=== PATIENT | female | born 1980 | race Caucasian/White ===

== ENCOUNTER 2019-06-23 13:03 | Emergency (ER) | payer OTHER ==
[~2019-06-23] VITALS: Ht 162.6 cm; Wt 52.2 kg
[2019-06-23 13:03] VITALS: BP 101/68
[2019-06-23 13:46] LABS: INFLUENZA A PATIENT NEGATIVE (NEGATIVE); INFLUENZA B PATIENT NEGATIVE (NEGATIVE)
[2019-06-23] MEDS ORDERED: AMOX500C PO (13:56)
--- NOTE | 2019-06-23 13:56 | PHYS DOC ---
Past History Past Medical History: No Pertinent History Past Surgical History: No Surgical History Alcohol Use: Occasionally Drug Use: None Adult General Chief Complaint Chief Complaint: FLU SYMPTOM HPI HPI Patient is a 39-year-old female who presents with four-day history of cough and congestion as well as sore throat. Patient also complains of pain in her right ear. She denies any chest pain or shortness of breath. Patient states that she feels like she is been running a fever at home. She is had no vomiting or diarrhea.[] Review of Systems Review of Systems Constitutional: Positive subjective fever and chills [] HENT: Positive sore throat [] Respiratory: Positive cough without shortness of breath [] Cardiovascular: No additional information not addressed in HPI [] Integument: Denies rash or skin lesions [] Neurologic: Denies headache, focal weakness or sensory changes [] Allergies Allergies Allergies Coded Allergies Type Severity Reaction Last Updated Verified No Known Drug Allergies 06/23/19 No Physical Exam Physical Exam Constitutional: Well developed, well nourished, no acute distress, non-toxic appearance. [] HENT: Normocephalic, atraumatic, bilateral external ears normal, there is pharyngeal erythema without exudates. [] Neck: Normal range of motion, no tenderness, supple, with anterior cervical lymphadenopathy. [] Cardiovascular: Regular rate and rhythm[] Lungs & Thorax: Bilateral breath sounds clear to auscultation [] Skin: Warm, dry, no erythema, no rash. [] Current Patient Data Vital Signs Vital Signs Date Time Temp Pulse Resp B/P (MAP) Pulse Ox O2 Delivery O2 Flow Rate FiO2 06/23/19 13:03 99.5 99 20 98 Room Air Lab Results Laboratory Tests Test 06/23/19 13:13 Influenza Type A (Rapid) Negative (NEGATIVE) Influenza Type B (Rapid) Negative (NEGATIVE) EKG EKG [] Radiology/Procedures Radiology/Procedures [] Course & Med Decision Making Course & Med Decision Making Pertinent Labs and Imaging studies reviewed. (See chart for details) [] Dragon Disclaimer Dragon Disclaimer This electronic medical record was generated, in whole or in part, using a voice recognition dictation system. Departure Departure: Impression: Primary Impression: Pharyngitis Disposition: 01 HOME, SELF-CARE Condition: STABLE Referrals: FRANCO BARROW PA-C (PCP) Patient Instructions: Viral and Bacterial Pharyngitis Scripts Amoxicillin (AMOXICILLIN) 500 Mg Capsule 2 CAP PO BID for infection, #40 CAP Prov: AMADOR COTE Jr. DO 06/23/19 Problem Qualifiers Primary Impression: Pharyngitis Pharyngitis/tonsillitis etiology: unspecified etiology Qualified Codes: J02.9 - Acute pharyngitis, unspecified AMADOR COTE Jr. DO Jun 23, 2019 13:56
== END 2019-06-23 14:10 | disposition home or self-care (01) ==
LOC: ER 13:03
DX: J02.9 Acute pharyngitis, unspecified (principal)
CPT/HCPCS: 87804; 99284